=== PATIENT | female | born 1995 | race Caucasian/White ===

== ENCOUNTER 2019-03-27 13:27 | Emergency (ER) | payer OTHER ==
[~2019-03-27] VITALS: Ht 157.5 cm; Wt 43.1 kg
[~2019-03-27 13:27] MED LIST: CEPH500 PO; Cyclobenzaprine5 MG PO; Norco 5-325 Ta1 EACH PO; Zoloft50 MG PO
[2019-03-27] MEDS ORDERED: SERT25 PO (14:00)
[2019-03-27] MEDS ORDERED: BUPR100 PO (14:00)
[2019-03-27] MEDS ORDERED: HYDHCL25 PO (14:00)
[2019-03-27] MEDS ORDERED: Veetids 500500 MG PO (14:10)
== END 2019-03-27 14:15 | disposition home or self-care (01) ==
LOC: ER 13:27
DX: K04.7 Periapical abscess without sinus (principal); Z79.899 Other long term (current) drug therapy
CPT/HCPCS: 99283

== ENCOUNTER → 2020-04-03 | Outpatient (CLI) | payer OTHER ==
[~2020-04-03] MED LIST changes: +BUPR100 PO; +HYDHCL25 PO; +SERT25 PO; +Veetids 500500 MG PO
== END ==
LOC: LAB 19:07 → LAB SHORT 19:07
PROVIDERS: Obstetrics & Gynecology
DX: Z12.4 Encounter for screening for malignant neoplasm of cervix (principal)
CPT/HCPCS: G0123

== ENCOUNTER 2021-02-01 16:52 | Emergency (ER) | payer OTHER ==
[~2021-02-01] VITALS: Ht 157.5 cm; Wt 45.8 kg
[2021-02-01 17:27] LABS: BASOPHILS ABSOLUTE AUTO 0.03 K/mm3 (0.00-0.23); BASOPHILS PERCENT AUTO 0 % (0-2); EOSINOPHILS ABSOLUTE AUTO 0.03 K/mm3 (0.00-0.68); EOSINOPHILS PERCENT AUTO 0 % (0-6); Hematocrit 41.4 % (33.0-51.0); Hemoglobin 15.3 g/dL (11.5-16.0); IMMATURE GRAN ABSOLUTE AUTO 0.02 K/mm3 (0.00-0.10); IMMATURE GRAN PERCENT AUTO 0 % (0-1); LYMPHOCYTES ABSOLUTE AUTO 4.26 K/mm3 (0.84-5.20); LYMPHOCYTES PERCENT AUTO 33 % (21-46); MONOCYTES ABSOLUTE AUTO 0.96 K/mm3 (0.16-1.47); MONOCYTES PERCENT AUTO 7 % (4-13); Mean Corpuscular HGB 33.1 pg (26.0-34.0); Mean Corpuscular Volume 90 fL (80-100); NEUTROPHILS ABSOLUTE AUTO 7.65 K/mm3 (1.96-9.15); NEUTROPHILS PERCENT AUTO 59 % (41-73); Platelet Count 382 K/mm3 (150-400); RDW Coefficient Variation 11.8 % (11.7-14.2); RDW Standard Deviation 37.7 fL (35.1-46.3); Red Blood Cell Count 4.62 M/mm3 (3.80-5.20); White Blood Cell Count 12.95 K/mm3 (4.00-11.30)
[2021-02-01 17:51] LABS: Source, Urine Clean Catch
[2021-02-01 18:02] LABS: Alanine Aminotransfer (ALT/SGP 245 U/L (12-78); Albumin, Blood 4.1 g/dL (3.4-5.0); Albumin/Globulin Ratio 1.2 (0.8-1.8); Alk Phos 119 U/L (50-136); Anion Gap 13 mmol/L (6-16); Aspartate Aminotrans (AST/SGOT 113 U/L (12-37); Beta HCG, Quantitative, Serum 113370 mIU/mL (0-3); Blood Urea Nitrogen 13 mg/dL (8-24); Bun/Creatinine Ratio 24.4 (12.0-20.0); CO2, Blood 22 mmol/L (21-32); Calcium, Blood 9.8 mg/dL (8.5-10.1); Chloride, Blood 98 mmol/L (98-108); Creatinine, Blood 0.53 mg/dL (0.40-1.00); Globulin, Blood 3.4 g/dL (2.2-4.0); Glomerular Filtration Rate >60 (60-); Glucose, Blood 102 mg/dL (70-99); Potassium, Blood 2.2 mmol/L (3.5-5.5); Sodium, Blood 133 mmol/L (136-145); Total Protein, Blood 7.5 g/dL (6.4-8.2)
[2021-02-01 18:22] LABS: Appearance, Urine Hazy (Clear); Blood, Urine 1+ (Neg); Color, Urine Brown (P-Yellow); Glucose Qualitative, Urine Neg (Neg); Ketones, Urine 4+ (Neg); Leukocyte Esterase, Urine 2+ (Neg); Nitrite, Urine Pos (Neg); Protein, Urine 2+ (Neg); Urobilinogen, Urine 4+ (Normal)
[2021-02-01 18:23] LABS: Bilirubin, Urine 2+ (Neg)
[2021-02-01 18:24] LABS: Squamous Epithelial Cells Many /hpf (Few)
[2021-02-01 18:25] LABS: Amorphous Light (0-Heavy); Bacteria Mod /hpf; Mucus Light (0-Heavy)
[2021-02-01] MEDS ORDERED: CYMBALTA30 M2 PO (18:33)
[2021-02-01] MEDS ORDERED: SEROQUEL100 MG PO (18:33)
[2021-02-01] MEDS ORDERED: BANOPHEN25 MG PO (20:09)
[2021-02-02] MEDS ORDERED: Macrobid 100 M100 MG PO (00:14)
[2021-02-02] MEDS ORDERED: PROM25 PO (00:14)
== END 2021-02-02 00:36 | disposition home or self-care (01) ==
LOC: ER 16:52
PROVIDERS: Physician Assistant
DX: O21.1 Hyperemesis gravidarum with metabolic disturbance (principal); E86.0 Dehydration; Z3A.01 Less than 8 weeks gestation of pregnancy; Z79.899 Other long term (current) drug therapy
CPT/HCPCS: 36415; 76705; 76801; 80053; 81001; 81025; 83735; 84132; 84702; 85025; 87086; 93005; 93010; 96361; 96365; 96366; 96375; 96376; 99284-25; A9270; J2405; J2765; J3480; J7120

== ENCOUNTER → 2021-08-29 | Outpatient (CLI) | payer OTHER ==
[~2021-08-29] MED LIST changes: +BANOPHEN25 MG PO; +CYMBALTA30 M2 PO; +Macrobid 100 M100 MG PO; +PROM25 PO; +SEROQUEL100 MG PO
== END | disposition home or self-care (01) ==
LOC: LAB 14:50 → LAB SHORT 14:50
DX: Z34.83 Encounter for supervision of other normal pregnancy, third trimester (principal)
CPT/HCPCS: 87081; 87150

== ENCOUNTER 2021-09-12 04:59 | Inpatient (IN) | payer OTHER ==
[~2021-09-12] VITALS: Ht 160 cm; Wt 68.2 kg
[2021-09-12] MEDS ORDERED: PRENATAL TABLE1 EAC2 PO (05:24)
[2021-09-12 05:53] LABS: BASOPHILS ABSOLUTE AUTO 0.02 K/mm3 (0.00-0.23); BASOPHILS PERCENT AUTO 0 % (0-2); EOSINOPHILS ABSOLUTE AUTO 0.03 K/mm3 (0.00-0.68); EOSINOPHILS PERCENT AUTO 0 % (0-6); Hematocrit 38.6 % (33.0-51.0); Hemoglobin 13.1 g/dL (11.5-16.0); IMMATURE GRAN ABSOLUTE AUTO 0.04 K/mm3 (0.00-0.10); IMMATURE GRAN PERCENT AUTO 1 % (0-1); LYMPHOCYTES ABSOLUTE AUTO 1.81 K/mm3 (0.84-5.20); LYMPHOCYTES PERCENT AUTO 23 % (21-46); MONOCYTES PERCENT AUTO 6 % (4-13); Mean Corpuscular HGB 33.6 pg (26.0-34.0); Mean Corpuscular HGB Conc 33.9 g/dL (31.5-36.5); Mean Corpuscular Volume 99 fL (80-100); Mean Platelet Volume 12.6 fL (9.1-12.4); NEUTROPHILS ABSOLUTE AUTO 5.65 K/mm3 (1.96-9.15); NEUTROPHILS PERCENT AUTO 70 % (41-73); Platelet Count 145 K/mm3 (150-400); RDW Coefficient Variation 13.7 % (11.7-14.2); RDW Standard Deviation 49.2 fL (35.1-46.3); White Blood Cell Count 8.05 K/mm3 (4.00-11.30)
[2021-09-12 06:47] LABS: SARS-Cov-2 (COVID-19) PCR, MMC NEGATIVE (NEGATIVE)
--- NOTE | 2021-09-13 16:30 | NUR ---
SPOKE WITH PATIENT REGARDING HER PAIN LEVEL. SHE REPORTS THAT SHE IS IN PAIN, BUT NOT ENOUGH TO TAKE MEDICATION FOR IT.
--- NOTE | 2021-09-14 11:02 | NUR ---
PT DISCHARGED TO HOME. DISCHARGE INSTRUCTIONS GIVEN. NO QUESTIONS OR CONCERNS AT THIS TIME. PP FU 11--21.
== END 2021-09-14 10:15 | disposition home or self-care (01) | DRG 807 ==
LOC: OBS 04:59 → BC 05:02 → OBS 05:27 → BC 05:30
PROVIDERS: ADMIT Advanced Practice Midwife
PROC: 10E0XZZ Delivery of Products of Conception, External Approach (ICD-10-PCS; principal; 2021-09-12)
PROC: 10907ZC Drainage of Amniotic Fluid, Therapeutic from Products of Conception, Via Natural or Artificial Opening (ICD-10-PCS; 2021-09-12)
PROC: 3E0R3BZ Introduction of Anesthetic Agent into Spinal Canal, Percutaneous Approach (ICD-10-PCS; 2021-09-12)
PROC: 00HU33Z Insertion of Infusion Device into Spinal Canal, Percutaneous Approach (ICD-10-PCS; 2021-09-12)
PROC: 3E02340 Introduction of Influenza Vaccine into Muscle, Percutaneous Approach (ICD-10-PCS; 2021-09-12)
DX: O99.344 Other mental disorders complicating childbirth (principal); Z37.0 Single live birth; O77.0 Labor and delivery complicated by meconium in amniotic fluid; Z3A.39 39 weeks gestation of pregnancy; Z20.822 Contact with and (suspected) exposure to COVID-19; F31.9 Bipolar disorder, unspecified; O43.123 Velamentous insertion of umbilical cord, third trimester; Z98.890 Other specified postprocedural states; Z87.891 Personal history of nicotine dependence; Z23 Encounter for immunization; Z88.6 Allergy status to analgesic agent; M41.9 Scoliosis, unspecified; O99.891 Other specified diseases and conditions complicating pregnancy; O69.81X0 Labor and delivery complicated by cord around neck, without compression, not applicable or unspecified
CPT/HCPCS: 36415; 51702; 85025; 86850; 86900; 86901; A9270; J1885; J2001; J2590; J3010; J7120; U0004

== ENCOUNTER → 2022-12-03 | Outpatient (CLI) | payer OTHER ==
[~2022-12-03] MED LIST changes: +PRENATAL TABLE1 EAC2 PO
== END ==
LOC: LAB 17:00 → LAB SHORT 17:00
PROVIDERS: Obstetrics & Gynecology
DX: Z01.419 Encounter for gynecological examination (general) (routine) without abnormal findings (principal)
CPT/HCPCS: G0145

== ENCOUNTER 2023-11-03 17:57 | Emergency (ER) | payer OTHER ==
[~2023-11-03] VITALS: Ht 157.5 cm; Wt 48.1 kg
[2023-11-03 18:41] VITALS: BP 101/68
[2023-11-03 19:32] LABS: Influenza A, PCR NEGATIVE (NEGATIVE); Influenza B, PCR NEGATIVE (NEGATIVE); Resp Syncytial Virus, PCR NEGATIVE (NEGATIVE); SARS-Cov-2 (COVID-19) PCR, MMC NEGATIVE (NEGATIVE)
[2023-11-03 19:35] LABS: BASOPHILS ABSOLUTE AUTO 0.02 K/mm3 (0.00-0.23); BASOPHILS PERCENT AUTO 0 % (0-2); EOSINOPHILS ABSOLUTE AUTO 0.01 K/mm3 (0.00-0.68); EOSINOPHILS PERCENT AUTO 0 % (0-6); IMMATURE GRAN PERCENT AUTO 1 % (0-1); LYMPHOCYTES ABSOLUTE AUTO 1.76 K/mm3 (0.84-5.20); LYMPHOCYTES PERCENT AUTO 18 % (21-46); MONOCYTES ABSOLUTE AUTO 0.68 K/mm3 (0.16-1.47); MONOCYTES PERCENT AUTO 7 % (4-13); Mean Corpuscular HGB 31.6 pg (26.0-34.0); Mean Corpuscular HGB Conc 33.3 g/dL (31.5-36.5); Mean Corpuscular Volume 95 fL (80-100); Mean Platelet Volume 10.7 fL (9.1-12.4); NEUTROPHILS ABSOLUTE AUTO 7.23 K/mm3 (1.96-9.15); NEUTROPHILS PERCENT AUTO 74 % (41-73); Platelet Count 332 K/mm3 (150-400); RDW Coefficient Variation 12.8 % (11.7-14.2); RDW Standard Deviation 44.7 fL (35.1-46.3); Red Blood Cell Count 4.12 M/mm3 (3.80-5.20)
[2023-11-03 19:46] LABS: Albumin, Blood 2.9 g/dL (3.4-5.0); Albumin/Globulin Ratio 0.6 (0.8-1.8); Bilirubin, Total 1.8 mg/dL (0.1-1.0); Calcium, Blood 9.5 mg/dL (8.5-10.1); Creatinine, Blood 0.5 mg/dL (0.40-1.00); Globulin, Blood 4.7 g/dL (2.2-4.0); Potassium, Blood 3.3 mmol/L (3.5-5.5); Total Protein, Blood 7.6 g/dL (6.4-8.2)
== END 2023-11-03 20:22 | disposition home or self-care (01) ==
LOC: ER 17:57
PROVIDERS: Student in an Organized Health Care Education/Training Program
DX: B34.9 Viral infection, unspecified (principal); R00.0 Tachycardia, unspecified; Z88.8 Allergy status to other drugs, medicaments and biological substances; Z79.899 Other long term (current) drug therapy; Z11.52 Encounter for screening for COVID-19; Z59.00 Homelessness unspecified
CPT/HCPCS: 0241U; 71046; 80053; 85025; 99284-25; J7030

== ENCOUNTER 2025-04-21 10:19 | Emergency (ER) | payer OTHER ==
[~2025-04-21] VITALS: Ht 157.5 cm; Wt 49.9 kg
[2025-04-21 10:39] VITALS: BP 91/61
[2025-04-21] MEDS ORDERED: OXAYDO5 M1 PO ×2 (10:45→12:07)
[2025-04-21] MEDS ORDERED: AMOX500 PO (10:45)
[2025-04-27] MEDS ORDERED: OXAYDO5 M1 PO (14:36)
== END 2025-04-21 11:44 | disposition home or self-care (01) ==
LOC: ER 10:19
DX: K04.7 Periapical abscess without sinus (principal); F17.200 Nicotine dependence, unspecified, uncomplicated; Z88.8 Allergy status to other drugs, medicaments and biological substances; Z79.899 Other long term (current) drug therapy
CPT/HCPCS: 99282